=== PATIENT | male | born 1980 | race Two or more races ===

== ENCOUNTER 2016-08-16 18:08 | Emergency (ER) | payer MEDICAID ==
[2016-08-16] MEDS ORDERED: ZOCOR20 M1 PO (18:35)
[2016-08-16] MEDS ORDERED: COREG3.125 M1 PO (18:35)
[2016-08-16] MEDS ORDERED: LASIX40 M1 PO (18:36)
[2016-08-16] MEDS ORDERED: KLOR-CON M2020 ME1 PO (18:36)
[2016-08-16] MEDS ORDERED: DIOVAN80 M1 PO (18:36)
[2016-08-16] MEDS ORDERED: ASPIRIN81 M1 PO (18:36)
[2016-08-16] MEDS ORDERED: ANUSOL-HC30 G1 APL (19:07)
== END 2016-08-16 19:25 ==
LOC: EDMED 18:08
DX: K62.89 Other specified diseases of anus and rectum (principal); I25.10 Atherosclerotic heart disease of native coronary artery without angina pectoris; I10 Essential (primary) hypertension; Z95.5 Presence of coronary angioplasty implant and graft; Z90.89 Acquired absence of other organs; Z79.82 Long term (current) use of aspirin; Z79.899 Other long term (current) drug therapy